=== PATIENT | female | born 1955 | race American Indian/Alaskan Native ===

== ENCOUNTER 2019-12-09 10:51 | Outpatient (CLI) | payer MEDICAID ==
--- NOTE | 2019-12-10 10:25 | Magnetic Resonance Report ---
BILATERAL BREAST MR WITHOUT AND WITH GADOLINIUM INDICATION: History of bilateral breast cancer in 1992 and 2002. Status post right partial mastectom y and status post left mastectomy. She complains of left axillary pain. COMPARISONS: None. TECHNIQUE: Axial 1.0 mm T1 without, axial high-resolution 2.0 mm T2 and axial 1.0 mm dynamic vibrant high-resolution postcontrast T1 fat saturation sequences on a 1.5 Maggi magnet. The examination was p erformed with an 8-channel dedicated [place] breast coil. Post-processing with CAD and subtraction was performed on an [employer] workstation. 18.0 cc of MultiHance was injected without incident for the c ontrast portion of the exam. Consent was obtained prior to the administration of the contrast. FINDINGS: RIGHT BREAST: Status post right mastectomy with no residual breast tissue identified. No nipple is id entified. There is greater soft tissue than on the left side. No mass or suspicious enhancement. No s uspicious lymph nodes. LEFT BREAST: Status post left mastectomy with no mass or suspicious enhancement. No suspicious lymph nodes. There appear to be surgical clips in the left axilla. No mass or fluid collection. IMPRESSION: Negative study status post bilateral mastectomy. No evidence of disease recurrence. No sheets spicious lymph nodes. No explanation for left axillary pain. BI-RADS Category 2: Benign Signer Name: Rufus Rivero MD Signed: 12/10/2019 10:21 AM Workstation Name: [id number]
== END 2019-12-09 10:52 | disposition home or self-care (01) ==
LOC: SPVIMAG 10:51
PROVIDERS: ATTEND Obstetrics & Gynecology
DX: Z85.3 Personal history of malignant neoplasm of breast (principal)
CPT/HCPCS: A9577; C8908; 77049